=== PATIENT | female | born 1960 | race Caucasian/White ===

== ENCOUNTER → 2018-02-26 10:15 | Outpatient (CLI) | payer OTHER, SELFPAY ==
--- NOTE | 2018-02-26 | DI.RAD.S_ITS ---
PROCEDURE: XR HIP W PEL IF DONE RT 2V INDICATIONS: Sprain of ligaments of lumbar spine TECHNIQUE: AP pelvis with lateral view(s) of the right hip(s). COMPARISON: [facility], , -SPINE 2-3 VIEWS, 12/23/2011, 13:25. FINDINGS: Bones: No fractures or dislocations. Pelvic ring appears intact. No suspicious bony lesions. Mild joint narrowing with periarticular osteophyte formation of the SI and hip joints bilaterally Soft tissues: The visualized bowel gas pattern is normal. No suspicious soft tissue calcifications. Right lower quadrant surgical clips. IMPRESSION: Mild symmetric hip joint degeneration. Dictated by: Arron BLACKWOOD Interpreted: Jaimee Suarez MD on 02/26/2018 at 10:51 Approved by: Jaimee Suarez M.D. on 02/26/2018 at 14:40
== END ==
PROVIDERS: PCP Physician Assistant; Visit Provider Physical Medicine & Rehabilitation
DX: M16.0 Bilateral primary osteoarthritis of hip (principal); S33.5XXA Sprain of ligaments of lumbar spine, initial encounter
CPT/HCPCS: 73502